=== PATIENT | female | born 1990 | race Caucasian/White ===

== ENCOUNTER 2017-03-29 16:59 | Emergency (ER) | payer SELFPAY ==
[~2017-03-29] VITALS: Ht 167.6 cm; Wt 123.4 kg
--- NOTE | 2017-03-29 18:28 | PHYS DOC ---
General Chief Complaint: WRIST PAIN Stated Complaint: LEFT WRIST PAIN Time Seen by MD: 18:24 Source: patient Exam Limitations: no limitations Problems: History of Present Illness Initial Comments Patient is a 27-year-old female who comes to the ED complaining of left wrist pain. Patient states that 1 month ago she fell and tried to catch herself with her left arm. She says she suffered severe left wrist pain and swelling and was seen at the [place] emergency department. Plain films were reportedly negative and the patient was diagnosed with fracture, she was given a wrist brace/splint and advised to wear it for 2 weeks. Patient states that she's been following instructions however has had no improvement in her symptoms. She does admit that the initial swelling has resolved however has dorsal distal forearm pain with certain wrist movements involving extreme flexion and extension. She points out a palpable soft tissue deficit at her dorsal distal forearm that is exquisitely tender and denies numbness tingling weakness or radiating symptoms. She does not have a primary care physician and has come seeking a second opinion. Pain is described as moderate with certain movements only very minimal if any pain at rest. Onset: other Severity: severe Pain/Injury Location: left forearm, left wrist Method of Injury: fell Modifying Factors: improves with immobilization, worse with jarring, worse with movement, improves with rest Allergies: Coded Allergies: No Known Drug Allergies (Unverified , 03/29/17) Past Medical History Medical History: diabetes Surgical History: noncontributory Social History Smoker: non-smoker Alcohol: none Drugs: none Review of Systems Constitutional: denies chills, denies diaphoresis, denies fever Respiratory: denies cough, denies shortness of breath Cardiovascular: denies chest pain, denies palpitations Gastrointestinal: denies abdominal pain, denies nausea, denies vomiting Musculoskeletal: see HPI Psychiatric/Neurological: see HPI Physical Exam General Appearance: no apparent distress, obese Neck: non-tender, supple Cardiovascular/Respiratory: normal peripheral pulses, no respiratory distress Elbow/Forearm: normal inspection, non-tender, no evidence of injury Wrist: soft tissue tenderness (at the dorsal aspect of the distal left forearm there is a palpable muscle deficit approximately 1 cm in length by his 0.25 cm in width consistent with muscle tear. This is exquisitely tender the area is not warm or pulsatile and minimal swelling is noted. There is no bony tenderness or palpable bony deformity) Hand: normal inspection, non-tender, no evidence of injury Neurologic/Tendon: normal sensation, normal motor functions, responds to pain Psychiatric: alert, oriented x 3 Skin: normal color, warm/dry Orders, Labs, Meds Left wrist: No acute osseous abnormality interpreted by me. I discussed the patient's findings with her at length. I discussed her need for MRI evaluation and and orthopedics consultation. Initially I advised her to follow up with her PCP however she reports she has no insurance and would instead prefer a referral to orthopedics. Referral was provided and discharge instructions, I advised her to continue wearing her splint and gave a note for activity restriction until cleared by orthopedics. I advised her that delay in treatment could result in permanent disability. I discussed signs and symptoms to monitor as well as indications for urgent return to the department, her questions were answered to her satisfaction and she expressed agreement and understanding with the treatment plan. See departure for instructions. Departure Time of Disposition: 18:25 Disposition: 01 HOME, SELF-CARE Diagnosis: Muscle tear/tendinopathy left dorsal forearm Condition: STABLE Patient Instructions: Muscle Tear Additional Instructions: As discussed you need to follow-up with an orthopedic surgeon and likely need an MRI evaluation. Continue wearing splint. [id number] Tylenol and ibuprofen as needed. Follow-up with orthopedic surgery, you may choose to follow up with: [facility] orthopedics, call to schedule next available appointment. Return to ED with new or changing symptoms. A work note with activity restriction given. MIRELA PLASCENCIA DO Mar 29, 2017 18:28
[2017-03-29 18:47] VITALS: BP 134/86
--- NOTE | 2017-03-30 08:20 | RAD ---
Left wrist, 3 views, 03/29/2017: History: Left wrist pain No fracture or dislocation is identified. Subcutaneous edema is present. IMPRESSION: No acute bony abnormality is detected.
== END 2017-03-29 18:46 | disposition home or self-care (01) ==
LOC: ER 16:59
DX: M25.532 Pain in left wrist (principal); M79.632 Pain in left forearm; E11.9 Type 2 diabetes mellitus without complications
CPT/HCPCS: 73110; 99284